=== PATIENT | female | born 1995 | race African-American/Black ===

== ENCOUNTER 2016-07-26 07:17 | Emergency (ER) | payer OTHER ==
[~2016-07-26] VITALS: Ht 157.5 cm; Wt 52.2 kg
[~2016-07-26 07:17] MED LIST: PREN-96 PO
[2016-07-26 08:23] LABS: Basophils # (auto) 0 uL; Basophils % (auto) 0.4 % (0.0-2.0); Eosinophils # (auto) 0.1 uL; Eosinophils % (auto) 1.4 % (0.0-7.0); Lymphocytes # (auto) 1.8 uL; Lymphocytes % (auto) 20.5 % (10.0-50.0); Mean Corpuscular Hemoglobin 30.4 pg (28.0-32.0); Mean Corpuscular Hgb Conc. 34.2 g/dL (32.0-36.0); Mean Corpuscular Volume 88.9 fL (80.0-100.0); Mean Platelet Volume 9.8 fL (7.4-10.4); Monocytes # (auto) 0.4 uL; Neutrophils # (auto) 6.3 uL; Neutrophils % (auto) 72.7 % (37.0-80.0); Platelet Count (auto) 225 10^3/uL (140-450); Red Cell Distribution Width 13.4 % (11.6-16.0); White Blood Cell 8.6 10^3/uL (4.4-10.8)
[2016-07-26 08:52] LABS: Albumin 3.1 g/dL (3.4-5.0); BUN/Creatinine Ratio 14.5; Bilirubin, Total 0.6 mg/dL (0.2-1.0); Calcium 8.5 mg/dL (8.5-10.1); Potassium 3.4 mmol/L (3.5-5.1); Total Protein 6.8 g/dL (6.4-8.2)
[2016-07-26] MEDS ORDERED: SODIUM CHLORIDE 0.9% 1,000 ML IV ONE ×2 (09:10→09:56)
[2016-07-26] MEDS ORDERED: METHYLERGONOVINE MALEATE 0.2 MG/ML AMP IM ONE (10:00)
[2016-07-26 10:35] VITALS: BP 95/50
== END 2016-07-26 11:44 | disposition home or self-care (01) ==
LOC: ER 07:17 → EDBD 07:17 → ER 11:44
DX: O03.9 Complete or unspecified spontaneous abortion without complication (principal)
CPT/HCPCS: 36415; 76801; 80053; 84702; 85025; 86850; 86900; 86901; 96360; 96372; 99285; J2210; J7030

== ENCOUNTER 2018-01-11 03:40 | Inpatient (IN) | payer MEDICAID, OTHER ==
[~2018-01-11] VITALS: Ht 157.5 cm; Wt 56.7 kg
[2018-01-11] MEDS ORDERED: LACT. RINGERS/OXYTOCIN 20UNITS 1,000 ML IV ONE (03:48)
[2018-01-11] MEDS ORDERED: LIDOCAINE 2% (LOCAL ANESTH.) PF 5ml SDV ONE (03:48)
[2018-01-11] MEDS ORDERED: METHYLERGONOVINE MALEATE 0.2 MG/ML AMP IM ONE (03:49)
[2018-01-11] MEDS ORDERED: OXYTOCIN 10UNIT/ML 1ML VIAL ONE (03:49)
[2018-01-11] MEDS: LACTATED RINGER'S 1,000 ML IV SCH ×2 (03:58→12:01)
[2018-01-11] MEDS ORDERED: BUTORPHANOL TARTRATE 2 MG/1 ML VIAL IV PRN (04:00)
[2018-01-11] MEDS ORDERED: BUTORPHANOL TARTRATE 2 MG/1 ML VIAL ONE (04:00)
[2018-01-11] MEDS ORDERED: DERMOPLAST 60ML BOTTLE TOP PRN (04:15)
[2018-01-11] MEDS ORDERED: LIDOCAINE 2% (LOCAL ANESTH.) PF 5ml SDV ID ONE (04:15)
[2018-01-11] MEDS ORDERED: PHISODERM TOP SOLN 240ML BTL TOP PRN (04:15)
[2018-01-11] MEDS ORDERED: WITCH HAZEL-GLYCERIN PAD TOP PRN (04:15)
[2018-01-11] MEDS ORDERED: PENICILLIN G POT 5MIL/D5 50ML 50 ML IV ONE (04:15)
[2018-01-11] MEDS ORDERED: CARBOPROST TROMETHAMINE 250 MCG/1ML VIAL IM PRN (04:15)
[2018-01-11] MEDS ORDERED: METHYLERGONOVINE MALEATE 0.2 MG/ML AMP IM PRN (04:15)
[2018-01-11 05:19] LABS: Basophils # (auto) 0 uL; Basophils % (auto) 0.2 % (0.0-2.0); Eosinophils # (auto) 0.1 uL; Eosinophils % (auto) 0.6 % (0.0-7.0); Hematocrit 36.2 % (36.0-46.0); Hemoglobin 12.4 g/dL (12.2-16.2); Lymphocytes # (auto) 2.2 uL; Lymphocytes % (auto) 24.5 % (10.0-50.0); Mean Corpuscular Hemoglobin 30.6 pg (28.0-32.0); Mean Corpuscular Hgb Conc. 34.1 g/dL (32.0-36.0); Mean Corpuscular Volume 89.6 fL (80.0-100.0); Monocytes # (auto) 0.9 uL; Monocytes % (auto) 9.8 % (0.0-12.0); Neutrophils # (auto) 5.8 uL; Neutrophils % (auto) 64.9 % (37.0-80.0); Nucleated Red Blood Cells % 0.1 %; Platelet Count (auto) 202 10^3/uL (140-450); Red Blood Cells 4.04 10^6/uL (4.0-5.20); Red Cell Distribution Width 14.1 % (11.8-14.3); White Blood Cell 8.9 10^3/uL (4.4-10.8)
[2018-01-11 05:25] LABS: INR 0.9 (0.9-1.15); Partial Thromboplastin Time 27.5 sec (23.78-33.04); Prothrombin Time 9.7 sec (9.27-12.13)
[2018-01-11 05:29] LABS: Albumin 2.7 g/dL (3.4-5.0); Calcium 8.5 mg/dL (8.5-10.1); Potassium 3.4 mmol/L (3.5-5.1)
[2018-01-11 05:31] LABS: BUN/Creatinine Ratio 10.5
[2018-01-11 05:34] LABS: Total Protein 6.5 g/dL (6.4-8.2)
[2018-01-11] MEDS ORDERED: LACT. RINGERS/OXYTOCIN 20UNITS 1,000 ML IV SCH (05:43)
[2018-01-11 05:45] LABS: Urine Bacteria NONE SEEN /hpf (None Seen); Urine Blood Negative /uL (Negative); Urine Mucus FEW (None Seen); Urine Specific Gravity 1.022 (1.001-1.035); Urine WBC 1 /hpf (0 - 5)
[2018-01-11] MEDS ORDERED: IBUPROFEN 600 MG TAB PO PRN (06:00)
[2018-01-11] MEDS ORDERED: ACETAMINOPHEN 325 MG TAB PO PRN (06:00)
[2018-01-11] MEDS ORDERED: LACT. RINGERS/OXYTOCIN 20UNITS 500 ML IV ONE (06:30)
[2018-01-11 06:31] LABS: Alcohol, Urine < 3.0 mg/dL (0-5); Amphetamine Screen, Urine NEGATIVE (NEGATIVE); Barbiturate Scree,Urine NEGATIVE (NEGATIVE); Benzodiazephine Screen, Urine NEGATIVE (NEGATIVE); Cannabinoid Screen, Urine POSITIVE (NEGATIVE); Cocaine Screen, Urine NEGATIVE (NEGATIVE); Opiate Scree,Urine NEGATIVE (NEGATIVE); Phencyclidine Screen, Urine NEGATIVE (NEGATIVE)
[2018-01-11] MEDS ORDERED: PENICILLIN G POTASSIUM 2,500,000 UNITS in D5W 5% 50 ML IV SCH (08:15)
[2018-01-11 10:50] VITALS: BP 96/52
[2018-01-11 15:00] VITALS: BP 109/58
[2018-01-11] MEDS ORDERED: TETANUS-DIPTH-ACEL PERTUSSIS 0.5ML SYRG IM ONE (16:00)
[2018-01-11 19:00] VITALS: BP 108/57
[2018-01-11 22:53] VITALS: BP 116/56
[2018-01-12 03:23] VITALS: BP 87/51
[2018-01-12 06:06] LABS: RPR Non Reactive (Non Reactive)
[2018-01-12 06:43] VITALS: BP 100/66
== END 2018-01-12 09:25 | disposition home or self-care (01) | DRG 560 ==
LOC: LDRP 03:40 → OBSVTOIN 03:40
PROVIDERS: ADMIT Specialist; ATTEND Specialist
PROC: 10E0XZZ Delivery of Products of Conception, External Approach (ICD-10-PCS; principal; 2018-01-11)
PROC: 3E0234Z Introduction of Serum, Toxoid and Vaccine into Muscle, Percutaneous Approach (ICD-10-PCS; 2018-01-11)
DX: O62.3 Precipitate labor (principal); O60.14X0 Preterm labor third trimester with preterm delivery third trimester, not applicable or unspecified; O42.013 Preterm premature rupture of membranes, onset of labor within 24 hours of rupture, third trimester; Z23 Encounter for immunization; Z37.0 Single live birth; Z3A.36 36 weeks gestation of pregnancy
CPT/HCPCS: 36415; 59025; 59409; 80053; 80307; 81001; 85025; 85610; 85730; 86592; 86850; 86900; 86901; 90715; 94760; 96365; 96366; 96372; 96374; J2001; J2590

== ENCOUNTER 2019-12-05 13:57 | Observation (INO) | payer MEDICAID ==
[~2019-12-05] VITALS: Ht 157.5 cm; Wt 64.4 kg
[2019-12-05] MEDS ORDERED: BETAMETHASONE ACET (6MG/ML) 5ML VIAL IM ONE (14:45)
[2019-12-05] MEDS ORDERED: TERBUTALINE SULFATE 1 MG/ML 1ML VIAL SC PRN (14:45)
[2019-12-05 14:54] LABS: Urine Bacteria NONE SEEN /hpf (None Seen); Urine Blood Negative /uL (Negative); Urine Specific Gravity 1.004 (1.001-1.035); Urine WBC 1 /hpf (0 - 5)
[2019-12-05 14:59] LABS: Alcohol, Urine < 3.0 mg/dL (0-10); Amphetamine Screen, Urine NEGATIVE (NEGATIVE); Barbiturate Scree,Urine NEGATIVE (NEGATIVE); Benzodiazephine Screen, Urine NEGATIVE (NEGATIVE); Cannabinoid Screen, Urine NEGATIVE (NEGATIVE); Cocaine Screen, Urine NEGATIVE (NEGATIVE); Opiate Scree,Urine NEGATIVE (NEGATIVE); Phencyclidine Screen, Urine NEGATIVE (NEGATIVE)
[2019-12-06] MEDS ORDERED: NIF10C PO (15:32)
== END 2019-12-05 15:55 | disposition home or self-care (01) | DRG 563 ==
LOC: LDRP 13:57
PROVIDERS: ADMIT Specialist; ATTEND Specialist
DX: O60.02 Preterm labor without delivery, second trimester (principal); O26.872 Cervical shortening, second trimester; O62.9 Abnormality of forces of labor, unspecified; O26.892 Other specified pregnancy related conditions, second trimester; R35.0 Frequency of micturition; Z3A.24 24 weeks gestation of pregnancy
CPT/HCPCS: 59025; 80307; 81001; 94760; 96372; G0378; J0702; J3105

== ENCOUNTER 2019-12-06 14:49 | Observation (INO) | payer MEDICAID ==
[~2019-12-06] VITALS: Ht 157.5 cm; Wt 64.4 kg
[2019-12-06] MEDS ORDERED: BETAMETHASONE ACET (6MG/ML) 5ML VIAL IM ONE (15:00)
[2019-12-06] MEDS ORDERED: NIF10C PO (15:32)
== END 2019-12-06 16:08 | disposition home or self-care (01) | DRG 566 ==
LOC: LDRP 14:49 → UNDOADMOB 14:49 → UNDODISOB 16:08
PROVIDERS: ADMIT Specialist; ATTEND Specialist
DX: O26.872 Cervical shortening, second trimester (principal); Z3A.24 24 weeks gestation of pregnancy
CPT/HCPCS: 59025; 81002; 96372; G0378

== ENCOUNTER 2019-12-09 13:05 | Observation (INO) | payer MEDICAID ==
[~2019-12-09 13:05] MED LIST changes: +NIF10C PO
== END 2019-12-09 15:15 | disposition home or self-care (01) ==
LOC: LDRP 13:05
PROVIDERS: ADMIT Specialist; ATTEND Specialist
DX: O60.02 Preterm labor without delivery, second trimester (principal); Z3A.24 24 weeks gestation of pregnancy; Z87.891 Personal history of nicotine dependence
CPT/HCPCS: 59025; 76815; G0378; 81002

== ENCOUNTER 2019-12-10 19:20 | Observation (INO) | payer MEDICAID | END 2019-12-10 20:18 | disposition home or self-care (01) | DRG 566 | LOC: LDRP 19:20 | PROVIDERS: ADMIT Specialist; ATTEND Specialist | DX: O26.872 Cervical shortening, second trimester (principal); Z3A.25 25 weeks gestation of pregnancy | CPT/HCPCS: 59025; 76815; 76817; 81002; G0378 ==

== ENCOUNTER 2019-12-16 13:56 | Observation (INO) | payer MEDICAID | END 2019-12-16 15:15 | disposition home or self-care (01) | LOC: LDRP 13:56 | PROVIDERS: ADMIT Specialist; ATTEND Specialist | DX: O26.872 Cervical shortening, second trimester (principal); Z3A.25 25 weeks gestation of pregnancy | CPT/HCPCS: 59025; 76815; 81002; G0378 ==

== ENCOUNTER 2019-12-25 11:53 | Observation (INO) | payer MEDICAID, OTHER | END 2019-12-25 14:00 | disposition home or self-care (01) | LOC: LDRP 11:53 | PROVIDERS: ADMIT Specialist; ATTEND Specialist | DX: O60.02 Preterm labor without delivery, second trimester (principal); O13.2 Gestational [pregnancy-induced] hypertension without significant proteinuria, second trimester; O26.872 Cervical shortening, second trimester; Z3A.27 27 weeks gestation of pregnancy | CPT/HCPCS: 59025; 81002; G0378 ==

== ENCOUNTER 2020-02-27 04:50 | Inpatient (IN) | payer MEDICAID, OTHER ==
[~2020-02-27] VITALS: Ht 157.5 cm; Wt 68.0 kg
[2020-02-27] MEDS ORDERED: PENICILLIN G POT 5MIL/D5 50ML 50 ML IV ONE (05:15)
[2020-02-27] MEDS ORDERED: DERMOPLAST 60ML BOTTLE TOP PRN (05:15)
[2020-02-27] MEDS ORDERED: PHISODERM TOP SOLN 240ML BTL TOP PRN (05:15)
[2020-02-27] MEDS ORDERED: BETAMETHASONE ACET (6MG/ML) 5ML VIAL IM ONE (05:15)
[2020-02-27] MEDS ORDERED: LIDOCAINE 2%HCL (LOCAL ANESTH.) INJ 20ML MDV IJ ONE (05:15)
[2020-02-27] MEDS ORDERED: WITCH HAZEL-GLYCERIN PAD TOP PRN (05:15)
[2020-02-27] MEDS ORDERED: LACTATED RINGER'S 1,000 ML IV SCH (05:15)
[2020-02-27] MEDS ORDERED: LACT. RINGERS/OXYTOCIN 20UNITS 1,000 ML IV ONE ×2 (05:45→08:30)
[2020-02-27 05:46] LABS: Basophils # (auto) 0.1 10 ^3/uL (0-0.2); Basophils % (auto) 0.5 % (0.0-2.0); Eosinophils # (auto) 0.1 10 ^3/uL (0-0.8); Eosinophils % (auto) 0.7 % (0.0-7.0); Hematocrit 38.1 % (36.0-46.0); Hemoglobin 12.7 g/dL (12.2-16.2); Lymphocytes # (auto) 2.1 10 ^3/uL (0.4-5.4); Mean Corpuscular Hemoglobin 30.4 pg (28.0-32.0); Mean Corpuscular Hgb Conc. 33.4 g/dL (32.0-36.0); Mean Corpuscular Volume 90.9 fL (80.0-100.0); Monocytes # (auto) 0.8 10 ^3/uL (0-1.3); Monocytes % (auto) 7.6 % (0.0-12.0); Neutrophils # (auto) 7.5 10 ^3/uL (1.6-8.6); Neutrophils % (auto) 71.2 % (37.0-80.0); Platelet Count (auto) 221 10^3/uL (140-450); Red Blood Cells 4.19 10^6/uL (4.0-5.20); Red Cell Distribution Width 13.9 % (11.8-14.3); White Blood Cell 10.5 10^3/uL (4.4-10.8)
[2020-02-27 06:01] LABS: INR 0.92 (0.9-1.15); Partial Thromboplastin Time 29.4 sec (23.0-31.2)
[2020-02-27 06:03] LABS: Albumin 2.6 g/dL (3.4-5.0); Calcium 8.9 mg/dL (8.5-10.1); Potassium 3.7 mmol/L (3.5-5.1)
[2020-02-27 06:07] LABS: BUN/Creatinine Ratio 9.2; Bilirubin, Total 0.7 mg/dL (0.2-1.0); Total Protein 6.4 g/dL (6.4-8.2)
[2020-02-27] MEDS ORDERED: BUTORPHANOL TARTRATE 2 MG/1 ML VIAL IM PRN (06:45)
[2020-02-27] MEDS ORDERED: LACT. RINGERS/OXYTOCIN 20UNITS 1,000 ML IV SCH (06:45)
[2020-02-27] MEDS ORDERED: BUTORPHANOL TARTRATE 2 MG/1 ML VIAL ONE (06:59)
[2020-02-27] MEDS ORDERED: miSOPROStol 100 mcg TAB ONE (07:36)
[2020-02-27] MEDS ORDERED: METHYLERGONOVINE MALEATE 0.2 MG/ML AMP IM ONE (07:36)
[2020-02-27] MEDS ORDERED: CARBOPROST TROMETHAMINE 250 MCG/1ML VIAL IM ONE ×3 (07:41→08:15)
[2020-02-27] MEDS ORDERED: ONDANSETRON HCL 4 MG/2 ML VIAL ONE (07:41)
[2020-02-27] MEDS ORDERED: DIPHENOXYLATE W/ATROPINE 2.5 MG TAB ONE (07:46)
[2020-02-27] MEDS ORDERED: miSOPROStol 100 mcg TAB SL ONE (08:15)
[2020-02-27] MEDS ORDERED: METHYLERGONOVINE MALEATE 0.2 MG/ML AMP IM PRN (08:15)
[2020-02-27] MEDS ORDERED: miSOPROStol 100 mcg TAB PR ONE (08:15)
[2020-02-27] MEDS ORDERED: ACETAMINOPHEN 325 MG TAB PO PRN (08:15)
[2020-02-27] MEDS ORDERED: ONDANSETRON HCL 4 MG/2 ML VIAL IV PRN (08:15)
[2020-02-27] MEDS: IBUPROFEN 600 MG TAB PO PRN ×3 (08:38→20:38)
[2020-02-27] MEDS: ceFAZolin 1GM/50ML 50 ML IV SCH ×2 (08:38→16:52)
[2020-02-27 08:47] LABS: Urine Bacteria NONE SEEN /hpf (None Seen); Urine Blood TRACE /uL (Negative); Urine Mucus FEW (None Seen); Urine Specific Gravity 1.026 (1.001-1.035); Urine WBC 1 /hpf (0 - 5)
[2020-02-27] MEDS: DIPHENOXYLATE W/ATROPINE 2.5 MG TAB PO SCH ×2 (09:03→22:00)
[2020-02-27 09:05] LABS: Alcohol, Urine < 3.0 mg/dL (0-10); Amphetamine Screen, Urine NEGATIVE (NEGATIVE); Barbiturate Scree,Urine NEGATIVE (NEGATIVE); Benzodiazephine Screen, Urine NEGATIVE (NEGATIVE); Cannabinoid Screen, Urine POSITIVE (NEGATIVE); Cocaine Screen, Urine NEGATIVE (NEGATIVE); Opiate Scree,Urine NEGATIVE (NEGATIVE); Phencyclidine Screen, Urine NEGATIVE (NEGATIVE)
[2020-02-27] MEDS ORDERED: PENICILLIN G POTASSIUM 2,500,000 UNITS in D5W 5% 50 ML IV SCH (09:15)
[2020-02-27 10:40] LABS: Alcohol, Urine < 3.0 mg/dL (0-10); Amphetamine Screen, Urine NEGATIVE (NEGATIVE); Barbiturate Scree,Urine NEGATIVE (NEGATIVE); Benzodiazephine Screen, Urine NEGATIVE (NEGATIVE); Cannabinoid Screen, Urine NEGATIVE (NEGATIVE); Cocaine Screen, Urine NEGATIVE (NEGATIVE); Opiate Scree,Urine NEGATIVE (NEGATIVE); Phencyclidine Screen, Urine NEGATIVE (NEGATIVE)
[2020-02-27 11:00] VITALS: BP 107/55
--- NOTE | 2020-02-27 11:48 | NUR ---
SPOKE WITH DR DELGADO, REVIEWED V/S, MINIMAL/LIGHT BLEEDING. ORDER RECEIVED TO DC BOWERS, PT MAY EAT, AND BRP.
--- NOTE | 2020-02-27 11:50 | NUR ---
Canales catheter dc'd Order to discontinue canales catheter. Canales dc'd with clean technique following deflation of balloon. Patient tolerated well with no complaints of pain.
--- NOTE | 2020-02-27 13:50 | NUR ---
Ambulation: Patient OOB with standby assistance by RN. Patient ambulated to bathroom with steady gait. Patient able to void 600ML without difficulty. [facility] teaching provided with returned demonstration by patient. Clean gown provided and bed linen changed. Patient ambulated back to bed with steady gait and no distress noted.
[2020-02-27 15:30] VITALS: BP 113/59
--- NOTE | 2020-02-27 16:20 | NUR ---
re-assessment Patients second UDS was negative. Waiting for UDS on baby. Addendum: 02/28/20 at 1142 by Karissa MOHAN Amended: Links added.
--- NOTE | 2020-02-27 16:21 | NUR ---
SS CONSULT Per ss consult positive for THC. Per RN Deidre patient was very upset and denied doing marijuana. Per Deidre she will re-order urine drug screen and call me when second results are in. Waiting on 2nd drug screen now. Addendum: 02/27/20 at 1623 by Karissa Ac SS Amended: Links added.
[2020-02-27 18:53] VITALS: BP 113/70
[2020-02-27 22:39] VITALS: BP 99/53
[2020-02-28] MEDS: ceFAZolin 1GM/50ML 50 ML IV SCH ×2 (00:30→08:10)
[2020-02-28 03:06] VITALS: BP 105/54
[2020-02-28] MEDS: IBUPROFEN 600 MG TAB PO PRN ×3 (04:22→11:44)
[2020-02-28 05:06] LABS: RPR Non Reactive (Non Reactive)
[2020-02-28 07:02] VITALS: BP 102/57
[2020-02-28 07:02] LABS: Basophils # (auto) 0 10 ^3/uL (0-0.2); Basophils % (auto) 0.3 % (0.0-2.0); Eosinophils # (auto) 0 10 ^3/uL (0-0.8); Hematocrit 28.6 % (36.0-46.0); Hemoglobin 9.9 g/dL (12.2-16.2); Lymphocytes # (auto) 1.6 10 ^3/uL (0.4-5.4); Lymphocytes % (auto) 9.9 % (10.0-50.0); Mean Corpuscular Hemoglobin 31.4 pg (28.0-32.0); Mean Corpuscular Hgb Conc. 34.7 g/dL (32.0-36.0); Mean Corpuscular Volume 90.6 fL (80.0-100.0); Monocytes # (auto) 0.9 10 ^3/uL (0-1.3); Monocytes % (auto) 5.7 % (0.0-12.0); Neutrophils # (auto) 13.5 10 ^3/uL (1.6-8.6); Neutrophils % (auto) 84.1 % (37.0-80.0); Platelet Count (auto) 224 10^3/uL (140-450); Red Blood Cells 3.16 10^6/uL (4.0-5.20); Red Cell Distribution Width 13.9 % (11.8-14.3); White Blood Cell 16.1 10^3/uL (4.4-10.8)
[2020-02-28 07:30] VITALS: BP 126/74
[2020-02-28 11:00] VITALS: BP 117/60
--- NOTE | 2020-02-28 12:00 | NUR ---
IV removal IV DC'd with clean sterile technique, catheter fully intact. Pressure dressing applied to site. Patient tolerated well.
--- NOTE | 2020-02-28 12:55 | NUR ---
Discharge: Discharge instructions given as ordered. Pt encouraged to follow up with [facility] as instructed. All questions and concerns addressed. Patient verbalized understanding. Medication reconciliation completed and copy given to patient. All required/requested vaccines given and copies of vaccinations given to patient. Patient encouraged to prepare to depart unit.
--- NOTE | 2020-02-28 16:30 | NUR ---
re-assessment I followed up with KIKO Patrick on baby UDS. Per Celina baby had a stool sample sent out for THC. Patient and baby discharged home. Per Celina no red flags, patient bonding well with . Patient has negative UDS. No ss intervention needed. Addendum: 02/28/20 at 1634 by Karissa Ac SS Amended: Links added.
== END 2020-02-28 13:15 | disposition home or self-care (01) | DRG 560 ==
LOC: LDRP 04:50 → OBSVTOIN 05:00 → LDRP 05:23
PROVIDERS: ADMIT Obstetrics & Gynecology; ATTEND Obstetrics & Gynecology
PROC: 10E0XZZ Delivery of Products of Conception, External Approach (ICD-10-PCS; principal; 2020-02-27)
DX: O60.14X0 Preterm labor third trimester with preterm delivery third trimester, not applicable or unspecified (principal); O99.324 Drug use complicating childbirth; O72.1 Other immediate postpartum hemorrhage; Z37.0 Single live birth; Z3A.36 36 weeks gestation of pregnancy; F12.90 Cannabis use, unspecified, uncomplicated
CPT/HCPCS: 36415; 59025; 59409; 80053; 80307; 81001; 81002; 85025; 85610; 85730; 86592; 86850; 86900; 86901; 96360; 96361; 96365; 96372; G0378; J0690; J2405; J2540; J2590; J7060

== ENCOUNTER 2021-08-07 21:42 | Emergency (ER) | payer MEDICAID ==
[~2021-08-07] VITALS: Ht 157.5 cm; Wt 64.9 kg
[2021-08-07 21:46] VITALS: BP 143/93
== END 2021-08-08 01:32 | disposition left against medical advice (07) ==
LOC: ER 21:42
DX: R19.7 Diarrhea, unspecified (principal); E86.0 Dehydration; Z53.21 Procedure and treatment not carried out due to patient leaving prior to being seen by health care provider